=== PATIENT | female | born 1955 | race Caucasian/White ===

== ENCOUNTER 2023-03-26 09:16 | Day surgery (SDC) | payer SELFPAY ==
[2023-03-20 10:52] VITALS: BMI 24.9
[~2023-03-26 09:16] MED LIST: HYDROmorphone HCl 2 MG/ML VIAL IVPB PRN; LACTATED RINGERS SOLUTION 1,000 ML IV SCH; oxyCODONE HCL 5 MG TABLET PO PRN
[2023-03-26] MEDS ORDERED: EPINEPHrine/PF 1 MG/1 ML (1:1,000) AMPULE ONE (09:43)
[2023-03-26] MEDS ORDERED: BUPIVACAINE HCL/PF 2.5 MG/ML - 30 ML VIAL IJ ONE (09:44)
[2023-03-26] MEDS ORDERED: LIDOCAINE HCL 1%, 10 MG/ML (20ML VIAL) ONE (09:44)
[2023-03-26] MEDS ORDERED: BACITRACIN ZINC 15 GM TUBE TOPICAL OINTMENT ONE (09:44)
[2023-03-26] MEDS ORDERED: GUM MASTIC/STORAX/MSAL/ALCOHOL 1 DRP DROPSBTL MC ONE (09:45)
[2023-03-26] MEDS ORDERED: MIDAZOLAM HCL 2 MG/2 ML SINGLE DOSE VIAL ONE (10:13)
[2023-03-26] MEDS ORDERED: ROCURONIUM BROMIDE 50 MG/5 ML SYRINGE ONE (10:13)
[2023-03-26] MEDS ORDERED: PROPOFOL 20 ML ONE ×3 (10:13→10:41)
[2023-03-26] MEDS ORDERED: LACTATED RINGERS SOLUTION 1,000 ML IV SCH (11:45)
[2023-03-26] MEDS ORDERED: ePHEDrine SULFATE 50 MG/1 ML AMPULE ONE ×2 (12:35→14:44)
[2023-03-26] MEDS ORDERED: PROPOFOL 60 ML ONE (15:56)
[2023-03-26] MEDS ORDERED: FENTANYL CITRATE/PF 50 MCG/ML VIAL ONE (18:00)
[2023-03-26] MEDS ORDERED: ACETAMINOPHEN INJECTION 100 ML IVPB ONE (18:00)
[2023-03-26] MEDS ORDERED: ONDANSETRON 4 MG/2 ML VIAL ONE (18:00)
[2023-03-26] MEDS ORDERED: ACETAMINOPHEN 1000 MG/100 ML BAG IVPB ONE (18:17)
[2023-03-26] MEDS ORDERED: PROMETHAZINE HCL 25 MG/1 ML VIAL IVPB PRN (18:17)
[2023-03-26] MEDS: DOCUSATE SODIUM 100 MG CAPSULE (FP) PO SCH (22:49)
[2023-03-26] MEDS ORDERED: ENOXAPARIN NA (PORCINE) 40 MG/0.4 ML DISP.SYRIN SQ ONE (23:00)
[2023-03-27] MEDS: ONDANSETRON 4 MG/2 ML VIAL IVPUSH PRN ×2 (00:06→09:43)
[2023-03-27] MEDS: DOCUSATE SODIUM 100 MG CAPSULE (FP) PO SCH ×2 (00:49→09:57)
[2023-03-27 01:58] VITALS: RESP 18
[2023-03-27] MEDS: ACETAMINOPHEN 325 MG TABLET (FP) PO PRN ×2 (02:00→09:43)
[2023-03-27] MEDS: CEFAZOLIN 1 GM in DEXTROSE 5%-WATER - 50 ML IVPB SCH ×2 (02:01→09:45)
[2023-03-27] MEDS ORDERED: DOXYCYCLINE HYCLATE 100 MG CAPSULE PO SCH (10:00)
[2023-03-27] MEDS: CLINDAMYCIN 300 MG PREMIX IVPB 300 MG/50 ML BAG IVPB SCH (10:20)
[2023-03-27] MEDS ORDERED: DEXAMETHASONE SOD PHOSPHATE 4 MG/1 ML VIAL IVPUSH ONE (10:22)
[2023-03-27] MEDS ORDERED: SCOPOLAMINE HYDROBROMIDE 1 PATCH PATCH.TD72 TD SCH (10:30)
[2023-03-27 14:27] VITALS: BP 110/63; PULSE 83; TEMP 99.5
== END 2023-03-27 16:20 | disposition home or self-care (01) ==
LOC: FASU 09:16 → FM/S 19:36 → FASU 03-27 16:20
PROVIDERS: ATTEND Surgery
CPT/HCPCS: 94760

== ENCOUNTER 2024-07-14 06:15 | Day surgery (SDC) | payer SELFPAY ==
[2024-07-09 16:57] VITALS: BMI 25.6
[2024-07-14] MEDS ORDERED: LIDOCAINE HCL 1%, 10 MG/ML (20ML VIAL) ONE ×2 (07:22→09:34)
[2024-07-14] MEDS ORDERED: EPINEPHrine/PF 1 MG/1 ML (1:1,000) AMPULE ONE (07:22)
[2024-07-14] MEDS ORDERED: BUPIVACAINE HCL/PF 0.25% (2.5MG/ML) 10 ML VIAL ONE ×2 (07:22→15:34)
[2024-07-14] MEDS ORDERED: BACITRACIN ZINC 15 GM TUBE TOPICAL OINTMENT ONE (07:22)
[2024-07-14] MEDS ORDERED: LIDOCAINE 1%/EPI 1:100000 (20 ML MULTI DOSE VIAL) ONE (07:23)
[2024-07-14] MEDS ORDERED: LIDOCAINE HCL/PF 2% SDV 5ML VIAL ONE (08:06)
[2024-07-14] MEDS ORDERED: ONDANSETRON 4 MG/2 ML VIAL ONE (08:06)
[2024-07-14] MEDS ORDERED: DEXAMETHASONE SOD PHOSPHATE 4 MG/1 ML VIAL ONE (08:06)
[2024-07-14] MEDS ORDERED: ROCURONIUM BROMIDE 50 MG/5 ML SYRINGE ONE (08:06)
[2024-07-14] MEDS ORDERED: MIDAZOLAM HCL 2 MG/2 ML SINGLE DOSE VIAL ONE (08:06)
[2024-07-14] MEDS ORDERED: ceFAZolin SODIUM 1 GM VIAL ONE ×2 (08:06)
[2024-07-14] MEDS ORDERED: PROPOFOL 20 ML ONE ×4 (08:06→15:06)
[2024-07-14] MEDS ORDERED: SCOPOLAMINE HYDROBROMIDE 1 PATCH PATCH.TD72 ONE (08:34)
[2024-07-14] MEDS ORDERED: ACETAMINOPHEN INJECTION 100 ML ONE (08:35)
[2024-07-14] MEDS ORDERED: SEVOFLURANE 250 ML BTL ONE (09:29)
[2024-07-14] MEDS ORDERED: PROPOFOL 120 ML ONE (09:32)
[2024-07-14] MEDS ORDERED: ePHEDrine SULFATE 50 MG/1 ML AMPULE ONE (10:07)
[2024-07-14] MEDS ORDERED: PROPOFOL 60 ML ONE ×3 (10:54→13:29)
[2024-07-14] MEDS ORDERED: PROMETHAZINE HCL 25 MG/1 ML VIAL IVPB PRN (14:43)
[2024-07-14] MEDS ORDERED: ONDANSETRON 4 MG/2 ML VIAL IVPUSH PRN (14:43)
[2024-07-14] MEDS ORDERED: LACTATED RINGERS SOLUTION 1,000 ML IV SCH (14:45)
[2024-07-14] MEDS ORDERED: FENTANYL CITRATE/PF 50 MCG/ML VIAL ONE ×2 (16:07→16:58)
[2024-07-14] MEDS ORDERED: oxyCODONE HCL 5 MG TABLET ONE (17:26)
[2024-07-14 17:35] VITALS: RESP 17
[2024-07-14] MEDS: oxyCODONE HCL 5 MG TABLET PO PRN (17:45)
[2024-07-14 17:55] VITALS: PULSE 72
[2024-07-14 19:13] VITALS: BP 115/58; TEMP 97.3
== END 2024-07-14 19:15 | disposition home or self-care (01) ==
LOC: FASU 06:15
PROVIDERS: ATTEND Surgery
CPT/HCPCS: 88305-TC; 94760; J0131